=== PATIENT | female | born 1970 | race Caucasian/White ===

== ENCOUNTER 2017-04-05 16:38 | Emergency (ER) | payer OTHER ==
[~2017-04-05] VITALS: Ht 157.5 cm; Wt 57.1 kg
[2017-04-05 19:29] VITALS: BP 126/86
== END 2017-04-05 19:29 | disposition home or self-care (01) ==
LOC: ED 16:38
DX: S52.351A Displaced comminuted fracture of shaft of radius, right arm, initial encounter for closed fracture (principal); S13.4XXA Sprain of ligaments of cervical spine, initial encounter; S50.811A Abrasion of right forearm, initial encounter; V49.9XXA Car occupant (driver) (passenger) injured in unspecified traffic accident, initial encounter; W22.12XA Striking against or struck by front passenger side automobile airbag, initial encounter; Y93.89 Activity, other specified; Y99.8 Other external cause status; Y92.89 Other specified places as the place of occurrence of the external cause
CPT/HCPCS: 90715; J1170

== ENCOUNTER 2019-01-30 09:49 | Emergency (ER) | payer MEDICAID ==
[~2019-01-30] VITALS: Ht 154.9 cm; Wt 61.2 kg
[2019-01-30 10:07] VITALS: BP 136/79; Ht 154.9 cm; Wt 61.2 kg
== END 2019-01-30 10:57 | disposition home or self-care (01) ==
LOC: ED 09:49
DX: S52.571A Other intraarticular fracture of lower end of right radius, initial encounter for closed fracture (principal); G89.29 Other chronic pain; Z90.710 Acquired absence of both cervix and uterus; W01.0XXA Fall on same level from slipping, tripping and stumbling without subsequent striking against object, initial encounter; Y93.89 Activity, other specified; Y92.89 Other specified places as the place of occurrence of the external cause; Y99.8 Other external cause status
CPT/HCPCS: A4570